=== PATIENT | female | born 1980 | race Two or more races ===

== ENCOUNTER 2023-02-16 13:10 | Inpatient (IN) | payer OTHER ==
[~2023-02-16] VITALS: Ht 165.1 cm; Wt 73.8 kg
[2023-02-16 14:21] LABS: Eosinophils # (auto) 0 10 ^3/uL (0-0.8); Hemoglobin 10.4 g/dL (12.2-16.2); Monocytes # (auto) 0.4 10 ^3/uL (0-1.3); Neutrophils # (auto) 13.6 10 ^3/uL (1.6-8.6); White Blood Cell 15.3 10^3/uL (4.4-10.8)
[2023-02-16 14:25] LABS: Basophils # (auto) 0.1 10 ^3/uL (0-0.2); Basophils % (auto) 0.4 % (0.0-2.0); Hematocrit 34.2 % (36.0-46.0); Lymphocytes # (auto) 1.2 10 ^3/uL (0.4-5.4); Lymphocytes % (auto) 8.1 % (10.0-50.0); Mean Corpuscular Hemoglobin 22.7 pg (28.0-32.0); Mean Corpuscular Hgb Conc. 30.5 g/dL (32.0-36.0); Mean Corpuscular Volume 74.4 fL (80.0-100.0); Monocytes % (auto) 2.6 % (0.0-12.0); Neutrophils % (auto) 88.9 % (37.0-80.0); Red Blood Cells 4.59 10^6/uL (4.0-5.20)
[2023-02-16 14:27] LABS: Red Cell Distribution Width 22.9 % (11.8-14.3)
[2023-02-16 14:55] LABS: Potassium 3.6 mmol/L (3.5-5.1)
[2023-02-16 15:09] LABS: Albumin 4.2 g/dL (3.4-5.0); BUN/Creatinine Ratio 15.2 (10.0-20.0); Bilirubin, Total 0.9 mg/dL (0.2-1.0); Calcium 9.5 mg/dL (8.5-10.1); Total Protein 8.7 g/dL (6.4-8.2)
[2023-02-16] MEDS ORDERED: FOLIC ACID 1 MG TAB PO ONE (16:15)
[2023-02-16] MEDS ORDERED: chlordiazePOXIDE HCL 25 MG CAP PO ONE (16:15)
[2023-02-16] MEDS ORDERED: LORazepam 2MG/ML-1ML VIAL IV ONE (16:15)
[2023-02-16] MEDS ORDERED: D5W/SOD CHLO 0.9% 1,000 ML IV ONE (16:15)
[2023-02-16] MEDS ORDERED: THIAMINE 100mg/ml INJ (200mg/2ml VIAL) IV ONE (16:15)
[2023-02-16] MEDS ORDERED: POTASSIUM CHL 20 Meq TABLET PO ONE (18:15)
[2023-02-16] MEDS ORDERED: NITROGLYCERIN 0.4 MG SL TAB SL PRN (18:15)
[2023-02-16] MEDS ORDERED: ACETAMINOPHEN 325 MG TAB PO PRN (18:15)
[2023-02-16] MEDS ORDERED: HYDROcodone-ACET 5/325MG TAB PO PRN (18:15)
[2023-02-16] MEDS ORDERED: DOCUSATE SOD 100 MG CAP PO PRN (18:15)
[2023-02-16] MEDS ORDERED: MORPHINE SULFATE INJ 2 MG/ml SYRG IV PRN (18:15)
[2023-02-16] MEDS ORDERED: ONDANSETRON HCL 4 MG/2 ML VIAL IV PRN (18:15)
[2023-02-16] MEDS: chlordiazePOXIDE HCL 25 MG CAP PO SCH (20:53)
[2023-02-16 21:41] LABS: Urine Bacteria MANY /hpf (None Seen); Urine Blood 1+ /uL (Negative); Urine Mucus MODERATE (None Seen); Urine WBC 73 /hpf (0 - 5); Urine WBC Clumps PRESENT /hpf (None Seen)
[2023-02-16 21:50] LABS: Alcohol, Urine < 3.0 mg/dL (0-10); Amphetamine Screen, Urine NEGATIVE (NEGATIVE); Barbiturate Scree,Urine NEGATIVE (NEGATIVE); Benzodiazephine Screen, Urine NEGATIVE (NEGATIVE); Cannabinoid Screen, Urine NEGATIVE (NEGATIVE); Cocaine Screen, Urine NEGATIVE (NEGATIVE); Opiate Scree,Urine NEGATIVE (NEGATIVE); Phencyclidine Screen, Urine NEGATIVE (NEGATIVE)
[2023-02-16] MEDS: MAGNESIUM SULFATE 1GM/100ML 100 ML IV SCH ×2 (22:01→23:09)
[2023-02-16] MEDS: PANTOPRAZOLE 40 MG/10 ML VIAL INJ IV SCH (22:28)
[2023-02-16] MEDS: MELATONIN 5 MG TAB PO SCH (22:28)
[2023-02-16] MEDS ORDERED: hydrALAZINE HCL 20 MG/ML VL IV PRN (22:30)
[2023-02-16] MEDS: METOPROLOL TARTRATE 25 MG TAB PO SCH (22:35)
[2023-02-16] MEDS ORDERED: MAGNESIUM SULFATE 1GM/100ML 100 ML IV ONE (23:09)
[2023-02-16] MEDS: LORazepam 2MG/ML-1ML VIAL IV PRN (23:40)
[2023-02-17] MEDS: chlordiazePOXIDE HCL 25 MG CAP PO SCH ×4 (02:26→21:41)
[2023-02-17] MEDS: MORPHINE SULFATE INJ 2 MG/ml SYRG IV PRN ×2 (03:32→09:32)
[2023-02-17 04:23] LABS: Basophils # (auto) 0 10 ^3/uL (0-0.2); Basophils % (auto) 0.3 % (0.0-2.0); Eosinophils # (auto) 0 10 ^3/uL (0-0.8); Eosinophils % (auto) 0.3 % (0.0-7.0); Hemoglobin 9.1 g/dL (12.2-16.2); Lymphocytes # (auto) 1.4 10 ^3/uL (0.4-5.4)
[2023-02-17 04:26] LABS: Hematocrit 28.8 % (36.0-46.0); Lymphocytes % (auto) 17.4 % (10.0-50.0); Mean Corpuscular Hgb Conc. 31.6 g/dL (32.0-36.0); Mean Corpuscular Volume 75.9 fL (80.0-100.0); Monocytes # (auto) 0.4 10 ^3/uL (0-1.3); Monocytes % (auto) 5.4 % (0.0-12.0); Neutrophils # (auto) 6.1 10 ^3/uL (1.6-8.6); Neutrophils % (auto) 76.6 % (37.0-80.0)
[2023-02-17 04:27] LABS: Red Cell Distribution Width 23.5 % (11.8-14.3)
[2023-02-17 04:38] LABS: INR 1.01 (0.9-1.15); Partial Thromboplastin Time 26.8 sec (24.6-33.4)
[2023-02-17 04:42] LABS: Albumin 3.3 g/dL (3.4-5.0); Calcium 9.1 mg/dL (8.5-10.1); Magnesium 2.6 mg/dL (1.6-2.6)
[2023-02-17 04:44] LABS: BUN/Creatinine Ratio 17.1 (10.0-20.0)
[2023-02-17 04:47] LABS: Bilirubin, Total 0.9 mg/dL (0.2-1.0); Total Protein 7.3 g/dL (6.4-8.2)
[2023-02-17] MEDS ORDERED: IOHEXOL 300 MG/ML 100ML BOTTLE IJ ONE (04:54)
[2023-02-17] MEDS: LORazepam 2MG/ML-1ML VIAL IV PRN (06:18)
[2023-02-17] MEDS: PANTOPRAZOLE 40 MG/10 ML VIAL INJ IV SCH ×2 (09:23→21:41)
[2023-02-17] MEDS: METOPROLOL TARTRATE 25 MG TAB PO SCH ×2 (09:31→21:42)
[2023-02-17] MEDS: FOLIC ACID 1 MG, MULTIPLE VITAMIN 10 ML, MAGNESIUM SULF SDV 50% 8 MEQ, THIAMINE INJ 100... INJ SCH ×5 (13:00)
[2023-02-17] MEDS ORDERED: HYDR-4798 PO (15:38)
[2023-02-17 17:00] VITALS: BP_SYST 149; BP_SYST 154; BP_DIAS 104; BP_DIAS 105
[2023-02-17 18:11] VITALS: BP 136/102
[2023-02-17] MEDS: HYDROcodone-ACET 5/325MG TAB PO PRN (18:56)
[2023-02-17] MEDS: MELATONIN 5 MG TAB PO SCH (21:42)
[2023-02-17 22:00] VITALS: BP 162/111
[2023-02-18 05:00] VITALS: BP 148/92
[2023-02-18] MEDS: HYDROcodone-ACET 5/325MG TAB PO PRN (05:17)
[2023-02-18 06:10] LABS: Basophils # (auto) 0 10 ^3/uL (0-0.2); Basophils % (auto) 0.4 % (0.0-2.0); Eosinophils # (auto) 0.1 10 ^3/uL (0-0.8); Lymphocytes # (auto) 1.4 10 ^3/uL (0.4-5.4); Monocytes # (auto) 0.2 10 ^3/uL (0-1.3)
[2023-02-18 06:13] LABS: Eosinophils % (auto) 2.1 % (0.0-7.0); Hematocrit 27.2 % (36.0-46.0); Hemoglobin 8.8 g/dL (12.2-16.2); Lymphocytes % (auto) 27.2 % (10.0-50.0); Mean Corpuscular Hemoglobin 23.9 pg (28.0-32.0); Mean Corpuscular Hgb Conc. 32.3 g/dL (32.0-36.0); Mean Corpuscular Volume 73.9 fL (80.0-100.0); Monocytes % (auto) 3.7 % (0.0-12.0); Neutrophils # (auto) 3.3 10 ^3/uL (1.6-8.6); Neutrophils % (auto) 66.6 % (37.0-80.0); Nucleated Red Blood Cells % 0.2 %; Red Blood Cells 3.69 10^6/uL (4.0-5.20)
[2023-02-18 06:14] LABS: Red Cell Distribution Width 23.5 % (11.8-14.3)
[2023-02-18 06:27] LABS: Potassium 3.6 mmol/L (3.5-5.1)
[2023-02-18 06:40] LABS: Albumin 3.2 g/dL (3.4-5.0); BUN/Creatinine Ratio 14.5 (10.0-20.0); Bilirubin, Total 0.5 mg/dL (0.2-1.0); Calcium 8.5 mg/dL (8.5-10.1); Total Protein 6.7 g/dL (6.4-8.2)
[2023-02-18 09:00] VITALS: BP 174/110
[2023-02-18] MEDS: METOPROLOL TARTRATE 25 MG TAB PO SCH (09:33)
[2023-02-18] MEDS: PANTOPRAZOLE 40 MG/10 ML VIAL INJ IV SCH (09:34)
[2023-02-18] MEDS ORDERED: chlordiazePOXIDE HCL 25 MG CAP PO SCH (10:00)
[2023-02-18] MEDS ORDERED: NIFEdipine ER 30 MG TAB PO ONE (12:00)
[2023-02-18] MEDS: FOLIC ACID 1 MG, MULTIPLE VITAMIN 10 ML, MAGNESIUM SULF SDV 50% 8 MEQ, THIAMINE INJ 100... INJ SCH ×5 (12:00)
[2023-02-18] MEDS ORDERED: CIPROFLOXACIN HCL 500 MG TAB PO ONE (12:00)
[2023-02-18] MEDS ORDERED: CIPROFLOXACIN HCL 500 MG TAB PO SCH (22:00)
[2023-02-19] MEDS ORDERED: chlordiazePOXIDE HCL 25 MG CAP PO SCH (07:00)
== END 2023-02-18 17:00 | disposition left against medical advice (07) | DRG 770 ==
LOC: EDBD 13:10 → ER 13:10 → TELE 18:09 → TELE-CENTR 02-17 14:44
PROVIDERS: ADMIT Nurse Practitioner Family; ATTEND Nurse Practitioner Family
DX: F10.239 Alcohol dependence with withdrawal, unspecified (principal); D50.9 Iron deficiency anemia, unspecified; I10 Essential (primary) hypertension; Z20.822 Contact with and (suspected) exposure to COVID-19; Y90.9 Presence of alcohol in blood, level not specified; N83.201 Unspecified ovarian cyst, right side; K57.90 Diverticulosis of intestine, part unspecified, without perforation or abscess without bleeding; M54.6 Pain in thoracic spine; D72.829 Elevated white blood cell count, unspecified; Z88.2 Allergy status to sulfonamides; Z98.84 Bariatric surgery status; Z79.899 Other long term (current) drug therapy
CPT/HCPCS: 36415; 71045; 71260; 74177; 80053; 80307; 80320; 81001; 83735; 84484; 85025; 85610; 85730; 86304; 87426; 93005; 96365; 96366; 96375; 96376; 99291; C9113; G0378; J2405